=== PATIENT | male | born 1945 | race Caucasian/White ===

== ENCOUNTER 2018-06-13 14:23 | Emergency (ER) | payer MEDICARE, OTHER ==
[2018-06-13 15:01] VITALS: BP 104/59
--- NOTE | 2018-06-13 15:34 | UC ---
Head Injury HPI - HPI Summary HPI Summary: 72 yo with undiagnosed neurological illness, likely related to [place] exposure, with bilateral neuropathy and cognitive deficits. Taking carbidopa/ levodopa without clear benefit. Went to get onto a stepper on 01/10, lost his footing, and fell forward against a cabinet, abrading his forehead. Over the past day, has increasing headache: both a diffuse headache with nausea, and episodes of sharp stabbing in the left temporal area which are brief but intense. N0 visual changes, no neck pain, no photophobia, no worsening of pre-existing ataxia or mental confusion. - History Of Current Complaint Chief Complaint: UCHeadInjury Stated Complaint: S/P FALL, FACIAL INJURY Time Seen by Provider: 06/13/18 15:14 Hx Obtained From: Patient, Family/Inside Sales Assistant Onset/Duration: Sudden Onset, Lasting Days - into 4th day Severity Currently: Mild Severity Initially: Moderate Pain Intensity: 8 Character: Sharp - stabs in left temporal area, Dull - diffuse headache Associated Signs And Symptoms: Positive: Memory Loss - cognitive changes not worse post fall - Risk Factors SDH Risk Factor: Elderly - Allergies/Home Medications Allergies/Adverse Reactions: Allergies Allergy/AdvReac Type Severity Reaction Status Date / Time No Known Allergies Allergy Verified 06/13/18 15:01 Home Medications: Home Medications Allopurinol TAB* [Zyloprim 100 MG TAB*] 100 mg PO DAILY 06/13/18 [History Confirmed 06/13/18] Alpha Lipoic Acid 50 mg PO DAILY 06/13/18 [History Confirmed 06/13/18] Aspirin 81 mg CHEW TAB* [Aspirin Low Dose TAB*] 81 mg PO DAILY 06/13/18 [ History Confirmed 06/13/18] Atorvastatin* [Lipitor*] 40 mg PO 1700 06/13/18 [History Confirmed 06/13/18] Carba-Dopa/Leva-Dopa DAILY 06/13/18 [History] Cholecalciferol (Vitamin D3) [Vitamin D3] 1,000 unit PO DAILY 06/13/18 [History Confirmed 06/13/18] Donepezil TAB* [Aricept 5 MG TAB*] 10 mg PO DAILY 06/13/18 [History Confirmed ] LevoCETirizine TAB (NF) [Xyzal TAB (NF)] 5 mg PO DAILY 06/13/18 [History Confirmed 06/13/18] Lisinopril TAB* [Prinivil TAB*] 10 mg PO DAILY 06/13/18 [History Confirmed 06/13] Melatonin 10 mg PO BEDTIME 06/13/18 [History Confirmed 06/13/18] Methylcobalamine (NF) [B-12] 1,000 mcg SL DAILY 06/13/18 [History Confirmed 01/21] Multivitamin [Multivitamins] 1 each PO DAILY 06/13/18 [History Confirmed ] Pantoprazole TAB * [Protonix TAB*] 40 mg PO EVERY OTHER DAY 06/13/18 [History Confirmed 06/13/18] Primidone TAB(*) [Mysoline TAB(*)] 5 mg PO DAILY 06/13/18 [History Confirmed 01/21] Sertraline* [Zoloft*] 150 mg PO DAILY 06/13/18 [History Confirmed 06/13/18] Turmeric/Turmeric Ext/Pepr Ext [Turmeric Complex 500 mg Cap] 1 each PO DAILY 01/21 [History Confirmed 06/13/18] PMH/Surg Hx/FS Hx/Imm Hx Previously Healthy: No Cardiovascular History: Pacemaker/ICD - has an implanted monitor which has confirmed that he does NOT have arrhythmia GI/ History: Gastroesophageal Reflux Psychological History: Depression - Surgical History Surgical History: Yes Surgery Procedure, Year, and Place: right knee replacement. finger amputation - Family History Known Family History: Positive: Non-Contributory - Social History Occupation: Retired - from [employer] work at the [employer] Alcohol Use: None Substance Use Type: None Smoking Status (MU): Never Smoked Tobacco Review of Systems All Other Systems Reviewed And Are Negative: Yes Constitutional: Positive: Fatigue Eyes: Positive: Drainage - increased watery eye discharge. Negative: Blurred Vision, Diplopia Respiratory: Positive: Negative Cardiovascular: Positive: Negative Physical Exam Triage Information Reviewed: Yes Appearance: Ill-Appearing - looks older than age, facial ecchymosis periorbital area. Vital Signs: Initial Vital Signs Temp 97.0 F 06/13/18 14:55 Pulse 55 06/13/18 14:55 Resp 17 06/13/18 14:55 BP 104/59 06/13/18 14:55 Pulse Ox 99 04/11/19 14:55 Eye Exam: Other - bilateral lid ptosis. Normal EOM with a few beats of nystagmus , non-sustained. KELSIE, could not see fundi Eyes: Positive: Other: - mild injection ENT Exam: Other - left eye hematoma, ecchymosis across nasal bridge. ENT: Positive: Pharynx normal, TMs normal Dental Exam: Normal Neck: Positive: Supple, Nontender, No Lymphadenopathy Respiratory: Positive: Lungs clear, Normal breath sounds Cardiovascular: Positive: RRR, No Murmur Musculoskeletal Exam: Other - bilateral leg braces. Upper extremities without tenderness, full rom in both arms. Neurological Exam: Other - No pronator drift Neurological: Positive: Alert, Muscle Tone Normal Psychological Exam: Normal Skin Exam: Other - deep abrasion with crust mid left forehead approx 2 cm x 1.5cm. Wound clean Diagnostics - Radiology CT brain Radiology Interpretation Completed By: ED Physician, Radiologist Summary of Radiographic Findings: negative study Re-Evaluation - Re-Evaluation First Eval Re-Evaluation Time: 16:30 Change: Unchanged Head Injury Course/Dx - Course Course Of Treatment: rest, acetaminophen for pain, follow up with PMD. Mild concussion syndrome - Differential Dx/Diagnosis Differential Diagnosis/HQI/PQRI: Cerebral Contusion, Concussion Without LOC, Hematoma, Nasal Fracture Provider Diagnosis: Contusion, periorbital, Concussion Discharge - Sign-Out/Discharge Documenting (check all that apply): Patient Departure All imaging exams completed and their final reports reviewed: Yes - Discharge Plan Condition: Stable Disposition: HOME Patient Education Materials: Concussion (ED), Contusion in Adults (ED) Referrals: Justen Biswas MD [Primary Care Provider] - Additional Instructions: The headache and sharp pains are consistent with a mild concussion. Ensure increased rest and use of acetaminophen for pain. You should improve over the next several days. Follow up with your primary physician if you are not seeing signs of improvement. - Billing Disposition and Condition Condition: STABLE Disposition: Home
== END 2018-06-13 16:48 | disposition home or self-care (01) ==
LOC: UCCORT 14:23
DX: S05.12XA Contusion of eyeball and orbital tissues, left eye, initial encounter (principal); S06.0X0A Concussion without loss of consciousness, initial encounter; W18.09XA Striking against other object with subsequent fall, initial encounter; Y92.9 Unspecified place or not applicable; K21.9 Gastro-esophageal reflux disease without esophagitis; F32.9 Major depressive disorder, single episode, unspecified; Z95.810 Presence of automatic (implantable) cardiac defibrillator; Z96.651 Presence of right artificial knee joint; Z89.029 Acquired absence of unspecified finger(s)
CPT/HCPCS: 70450; 99212; G0463